=== PATIENT | female | born 2000 | race Hispanic/Latino ===

== ENCOUNTER 2024-02-12 00:11 | Emergency (ER) | payer SELFPAY ==
[~2024-02-12] VITALS: Ht 152.4 cm; Wt 49.0 kg
[~2024-02-12 00:11] MED LIST: CEFDINIR300 MG PO; DIFLUCAN100 MG PO; ONDANSETRON ODT4 MG PO
[2024-02-12 00:21] VITALS: PULSE 89; RESP 18; TEMP 98.9
[2024-02-12] MEDS ORDERED: ONDANSETRON ODT4 MG PO (01:51)
[2024-02-12 02:00] VITALS: BP 137/84; PULSE 89; RESP 18; TEMP 98.8; O2SAT 100
== END 2024-02-12 02:00 | disposition home or self-care (01) ==
LOC: FSED 00:17
DX: R06.00 Dyspnea, unspecified (principal); R10.13 Epigastric pain; R07.89 Other chest pain; R11.0 Nausea; Z11.52 Encounter for screening for COVID-19
CPT/HCPCS: 0223U; 71046; 81003; 81025; 83518; 87400; 93005; 99282